=== PATIENT | male | born 1955 | race Caucasian/White ===

== ENCOUNTER 2022-12-09 14:54 | Outpatient (CLI) | payer MEDICARE, SELFPAY ==
--- NOTE | 2022-12-09 15:17 | XRR_ITS ---
PROCEDURE INFORMATION: Exam: XR Chest Exam date and time: 12/09/2022 3:25 PM Age: 67 years old Clinical indication: Dyspnea TECHNIQUE: Imaging protocol: Radiologic exam of the chest. Views: 2 views. COMPARISON: No relevant prior studies available. FINDINGS: Lungs: Hyperexpanded lungs with diffuse bilateral lung emphysematous changes. The lungs are otherwise clear consolidations. Pleural spaces: Unremarkable. No pleural effusion. No pneumothorax. Heart/Mediastinum: Unremarkable. No cardiomegaly. Bones/joints: Generalized osteopenia and osteoarthritis is seen. XR/XR chest 2V* [id number] IMPRESSION: 1. Extensive emphysema 2. Negative for acute abnormality
== END 2022-12-09 14:55 | disposition home or self-care (01) ==
PROVIDERS: PCP Nurse Practitioner Family; Visit Provider Nurse Practitioner Family
DX: R06.00 Dyspnea, unspecified (principal); J43.9 Emphysema, unspecified
CPT/HCPCS: 71046